=== PATIENT | female | born 1985 ===

== ENCOUNTER 2024-05-03 10:21 | Outpatient (CLI) ==
[~2024-05-03] VITALS: Ht 165.1 cm; Wt 101.0 kg
[2024-05-03 10:54] VITALS: BP 132/79
== END 2024-05-03 12:52 | disposition home or self-care (01) ==
LOC: M LDO 10:21
PROVIDERS: ATTEND Obstetrics & Gynecology
DX: O26.893 Other specified pregnancy related conditions, third trimester (principal); R25.2 Cramp and spasm; R10.2 Pelvic and perineal pain; Z3A.33 33 weeks gestation of pregnancy
CPT/HCPCS: 59025; 76815; G0463